=== PATIENT | male | born 1960 | race Two or more races ===

== ENCOUNTER 2016-05-11 12:08 | Emergency (ER) | payer OTHER ==
[~2016-05-11] VITALS: Ht 165.1 cm; Wt 109.3 kg
[2016-05-11] MEDS ORDERED: LORazepam 2MG/ML-1ML VIAL IV ONE (12:30)
[2016-05-11] MEDS ORDERED: ASPirin 325 MG TAB PO ONE (12:30)
[2016-05-11] MEDS ORDERED: LORazepam 0.5 MG TAB PO ONE (12:30)
[2016-05-11 13:10] LABS: Basophils # (auto) 0 uL; Basophils % (auto) 0.5 % (0.0-2.0); Eosinophils # (auto) 0.1 uL; Eosinophils % (auto) 1.8 % (0.0-7.0); Hematocrit 48.3 % (41.0-53.0); Hemoglobin 15.7 g/dL (13.5-17.5); Lymphocytes # (auto) 2.1 uL; Lymphocytes % (auto) 29.8 % (10.0-50.0); Mean Corpuscular Hemoglobin 28.2 pg (28.0-32.0); Mean Corpuscular Hgb Conc. 32.6 g/dL (32.0-36.0); Mean Corpuscular Volume 86.4 fL (80.0-100.0); Mean Platelet Volume 9.3 fL (7.4-10.4); Monocytes # (auto) 0.5 uL; Neutrophils # (auto) 4.3 uL; Neutrophils % (auto) 60.9 % (37.0-80.0); Platelet Count (auto) 189 10^3/uL (140-450); White Blood Cell 7.1 10^3/uL (4.4-10.8)
[2016-05-11 13:22] LABS: Albumin 4.4 g/dL (3.4-5.0); BUN/Creatinine Ratio 33.3; Bilirubin, Total 0.5 mg/dL (0.2-1.0); Calcium 8.6 mg/dL (8.5-10.1); Potassium 3.9 mmol/L (3.5-5.1); Total Protein 7.2 g/dL (6.4-8.2)
[2016-05-11 14:30] VITALS: BP 157/83
== END 2016-05-11 15:05 | disposition home or self-care (01) ==
LOC: ER 12:08
DX: F41.9 Anxiety disorder, unspecified (principal); R07.89 Other chest pain; M25.512 Pain in left shoulder
CPT/HCPCS: 36415; 80053; 84484; 85025; 85049; 85379; 93005; 96374; 99285; J2060